=== PATIENT | female | born 1955 | race Caucasian/White ===

== ENCOUNTER → 2016-08-28 | Day surgery (SDC) | payer BC ==
[~2016-08-28] VITALS: Ht 160 cm; Wt 61.5 kg
[~2016-08-28] MED LIST: ALPR.25 PO; BUPIVACAINE HCL PF 0.5% 30 ML VIAL INFIL ONE; CHLORHEXIDINE GLUCONATE 2 % 1 PACK (2 CLOTHS) TOPICAL PRN; CLINDAMYCIN INJ 900 MG in SODIUM CHLORIDE 0.9% INJ 100 ML IV SCH; CLINDAMYCIN PHOS 900 MG/6 ML VIAL ONE; DEXT 5%-NACL 0.45% 1000 ML INJ 1,000 ML IV SCH; FAMOTIDINE 20 MG/2 ML VIAL ONE; IBUP800T23 PO; IBUPROFEN 800 MG TAB ONE; INSULIN HUMAN REGULAR 1,000 UNITS/10 ML VIAL SQ PRN; LACTATED RINGER'S 1000 ML INJ 1,000 ML ONE; LACTATED RINGER'S 1000 ML IV PRN; METOPROLOL TARTRATE 25 MG TAB PO PRN; MIDAZOLAM HCL 2 MG/2 ML VIAL ONE; MOBI7.5T PO; NORC5TAB PO; ONDANSETRON HCL 4 MG/2 ML VIAL IV PUSH ONE; PHENYLEPH/NS 1000 MCG/10 ML SYR IV ONE; POVIDONE IODINE 5% (ANTISEPSIS KIT) 4 APPLICATIONS EACH NARE PRN; PROPOFOL 200 MG/20 ML AMP IV ONE; SODIUM CHLORID 0.9% 500 ML IV PRN; SODIUM CHLORIDE 0.9% FLUSH 5 ML FLUSH IVF PRN; SODIUM CHLORIDE 0.9% FLUSH 5 ML FLUSH IVF SCH; SODIUM CHLORIDE 0.9% INJ 100 ML ONE; ePHEDrine/NS 25 MG/5 ML SYR IV ONE
[2016-08-28 07:05] VITALS: BP 127/75; PULSE 77; RESP 16; TEMP 98.2; O2SAT 99
--- NOTE | 2016-08-28 07:55 | HP.UPD ---
H&P Update Date: Aug 28, 2016 Note The Pre-Admit History and Physical Examination regarding the above named patient was reviewed (including, but not limited to, vital signs, medications, allergies, co-morbid conditions), and upon re-examination it is noted that: Indicated with "X" x - the patient's condition has not significantly changed since the last examination. [] - the patient's condition has changed since the last examination. Changes: Erika Ponce MD Aug 28, 2016 07:54
--- NOTE | 2016-08-28 10:04 | HHI.PR ---
Immediate Post Op Note Procedure Date: Aug 28, 2016 Pre Op Diagnosis: (1) Closed displaced fracture of proximal phalanx of right little finger Post Op Diagnosis: (1) Closed displaced fracture of proximal phalanx of right little finger Surgeon: Erika Ponce Canceling Machine Operator(s): None Procedure: Closing wedge osteotomy of the right fifth proximal phalanx. Anesthesia: General Drains: None Tourniquet time (min at mmHg) 63 minutes at 220 mm Hg. Patient to: PACU Patient Condition: Good Implant/Devices: SEE IMPLANT LOG (if applicable) Date/Time of Procedure: SEE SURGICAL CARE RECORD Erika Ponce MD Aug 28, 2016 10:04
[2016-08-28 11:30] VITALS: BP 120/77; PULSE 69; RESP 16; TEMP 98; O2SAT 99
--- NOTE | 2016-08-29 13:39 | EKG ---
Date Performed: 08/28/2016 Time Performed: 07:36:45 PTAGE: 61 years EKG: Sinus rhythm NORMAL ECG NO PREVIOUS TRACING DOCTOR: Joseph Siegel Interpretating Date/Time 08/29/2016 13:37:04
--- NOTE | 2016-08-30 10:45 | MP ---
cc: HARJIT MEDINA M.D. DATE OF SURGERY: 08/28/2016 PREOPERATIVE DIAGNOSIS: Malunited fracture of the base of the right fifth proximal phalanx. POSTOPERATIVE DIAGNOSIS: Malunited fracture of the base of the right fifth proximal phalanx. PROCEDURE: Closing wedge osteotomy of the right fifth proximal phalanx. ANESTHESIA: General. SURGEON: Dr. Medina. INDICATIONS: The patient is a 61 year-old female who injured her right fifth proximal phalanx several months ago. The patient did not want to have surgical treatment but reached a plateau in the progression of her therapy and felt that she was not happy with the way her finger was. FINDINGS: At the completion of the procedure, the deformity and malunion had been corrected by the closing wedge osteotomy. DESCRIPTION OF PROCEDURE: The patient was seen preoperatively where the site and side were identified and marked. The patient was then taken to the operating room, placed in supine position. Her identity was checked against the arm band and the consent form, site and side confirmed, time-out called prior to beginning the procedure. The right upper extremity was prepped with Hibiclens and draped in the usual sterile fashion. The area to be incised was outlined with a marking pen as an incision over the radial aspect of the fifth finger over the proximal phalanx base. The arm was exsanguinated and the tourniquet inflated to 220 mmHg. Bupivacaine 0.5% plain was used to make a metacarpal head block dorsally. A #15 blade was used to make the incision down through skin, down to the subcutaneous tissue. Under loupe magnification, dissection was continued down to the bone. The extensor apparatus was elevated exposing the periosteum of the bone. A 4-mm osteotome was used to remove the periosteum to view the area of the fracture. The place of the malunion was identified with the mini C-arm. An osteotomy was then made parallel to the bone. The osteotomy was then made by placing the osteotome perpendicular to the dorsal aspect of the proximal phalanx. Once the bone was removed, it was placed on the side to hold for bone graft if needed. The bone was then reduced into a normal anatomic position. Two 0.045 K-wires were placed proximal and distal across the fracture site. The position was checked with the mini C-arm. Once the position was anatomic and there was good fixation the pins were cut short, protected with Reva balls. The wound was irrigated with saline and closed with interrupted and running 5-0 Prolene. The tourniquet was released after 63 minutes of tourniquet time. Pressure was applied. After several minutes, there was no evidence of any oozing. Dressing was applied using povidone iodine ointment, Adaptic, telfa, 4x4s, and splints to protect the pins as well as to maintain the hand in position of function. The patient was then taken from the operating room to the Recovery Room in satisfactory condition having tolerated the procedure well. Postoperative instructions include keeping the arm elevated, keeping it clean and dry, and returning in several days for follow up. The patient was given prescriptions for ibuprofen and [place]. MD HEIDI Morrison/KEVIN /10:13 AM /10:41 AM
== END | disposition home or self-care (01) ==
LOC: PHSDC 06:21
PROVIDERS: ATTEND Specialist
DX: S62.616P Displaced fracture of proximal phalanx of right little finger, subsequent encounter for fracture with malunion (principal); X58.XXXD Exposure to other specified factors, subsequent encounter; Z88.0 Allergy status to penicillin
CPT/HCPCS: 26567; 76000; 93005; J2250; J2370; J2405; J7120